=== PATIENT | female | born 1990 | race African-American/Black ===

== ENCOUNTER 2017-06-18 11:28 | Emergency (ER) | payer MEDICAID ==
[~2017-06-18] VITALS: Ht 177.8 cm; Wt 68.0 kg
[~2017-06-18 11:28] MED LIST: PREN-88 PO
[2017-06-18 11:41] VITALS: BP 111/66
== END 2017-06-18 14:20 | disposition left against medical advice (07) ==
LOC: ER 12:08
DX: L03.012 Cellulitis of left finger (principal)
CPT/HCPCS: 99281